=== PATIENT | female | born 1945 | race Caucasian/White ===

== ENCOUNTER 2016-12-12 09:19 | Outpatient (CLI) | payer MEDICARE ==
--- NOTE | 2016-12-12 11:53 | RAD ---
RIGHT SHOULDER THREE VIEWS HISTORY: Acute pain in the right shoulder. FINDINGS: There are degenerative changes in the acromioclavicular joint. No fracture, dislocation, or bony de struction is identified. POS: [facility]
== END 2016-12-12 09:20 | disposition home or self-care (01) ==
LOC: BURRAD 09:19
PROVIDERS: ATTEND Family Medicine
DX: M25.511 Pain in right shoulder (principal)

== ENCOUNTER 2016-12-29 09:43 | Outpatient (CLI) | payer MEDICARE ==
[2016-12-29 10:49] LABS: #Basophils 0.1 thou/uL (0.0-0.2); #Eosinphils 0.2 thou/uL (0.0-0.7); #Monocytes 0.7 thou/uL (0.11-0.59); %Basophils 0.9 % (0.0-1.0); %Eosinophils 2.3 % (0.0-10.0); %Lymphocytes 29.9 % (21.0-51.0); %Monocytes 7.3 % (0.0-10.0); %Neutrophils 59.6 % (42.0-75.0); Hemoglobin 15.7 g/dL (12.0-16.0); Mean Corpuscular HGB CONC 34.6 g/dL (32.0-36.0); Mean Corpuscular Hemoglobin 32.9 pg (27.0-31.0); Mean Corpuscular Volume 95.2 fl (81.0-99.0); Mean Platelet Volume 8.6 fL (7.4-10.4); Platelet Count 217 thou/uL (130-400); RBC Distribution Width 11.8 % (11.5-14.5); Red Blood Cell (RBC) Count 4.77 mill/uL (4.20-5.40); White Blood Cell (WBC) Count 10.1 thou/uL (4.8-10.8)
[2016-12-29 11:04] LABS: ALT (SGPT) 14 U/L (8-55); AST (SGOT) 16 U/L (5-34); Albumin 4.2 g/dL (3.4-4.8); Alkaline Phosphatase 63 U/L (40-150); Anion Gap 15 mmol/L (10-20); BUN (Urea Nitrogen) 10 mg/dL (9.8-20.1); Bilirubin, Total 0.8 mg/dL (0.2-1.2); Calc. Creatinine Clearance 0 mL/min (70-130); Calcium 9.2 mg/dL (7.8-10.44); Cardiac Risk 3.3 (Less than 4.5); Chloride 102 mmol/L (98-107); Cholesterol 181 mg/dl (< 200 Desired); Estimated GFR-MDRD 90; Globulin 2.3 g/dL (2.4-3.5); Glucose 99 mg/dL (80-115); HDL Cholesterol 55 mg/dL (>60 Neg Risk); LDL Cholesterol, Calculated 109 mg/dL; Potassium 4.1 mmol/L (3.5-5.1); Protein, Total 6.5 g/dL (6.0-8.3); Sodium 138 mmol/L (136-145); Triglycerides 85 mg/dL (Less than 150)
[2016-12-29 11:32] LABS: Carbon Dioxide 25 mmol/L (23-31)
== END 2016-12-29 09:44 | disposition home or self-care (01) ==
LOC: HPCALD 09:43
PROVIDERS: ATTEND Family Medicine
DX: E78.5 Hyperlipidemia, unspecified (principal); I10 Essential (primary) hypertension; E55.9 Vitamin D deficiency, unspecified
CPT/HCPCS: 36415; 80053; 80061; 82306; 85025

== ENCOUNTER 2019-12-26 13:26 | Outpatient (CLI) | payer MEDICARE, OTHER ==
--- NOTE | 2019-12-26 14:57 | RAD ---
LEFT SECOND TOE: Date: 12/26/2019 A healing fracture of the distal end of the proximal phalanx of the second toe is present. There is v cindy slight lateral angulation of the distal fragment. The first and third toes appeared intact. IMPRESSION: Fracture of the proximal phalanx of the second toe. POS: HOME
--- NOTE | 2019-12-26 14:58 | RAD ---
LEFT KNEE 4 VIEWS: Date: 12/26/2019 No fracture or joint effusion seen. The joint space seems normal and the articular surfaces are cyndy h. There is some very minor bony spurring seen on the back of the patella. IMPRESSION: No significant finding. POS: HOME
== END 2019-12-26 13:27 | disposition home or self-care (01) ==
LOC: BURRAD 13:26
PROVIDERS: ATTEND Family Medicine
DX: M25.562 Pain in left knee (principal); M79.675 Pain in left toe(s); M79.672 Pain in left foot; S92.512D Displaced fracture of proximal phalanx of left lesser toe(s), subsequent encounter for fracture with routine healing

== ENCOUNTER 2022-07-24 16:38 | Outpatient (CLI) | payer MEDICARE, OTHER | END 2022-07-24 16:39 | disposition home or self-care (01) | LOC: BURRAD 16:38 | PROVIDERS: ATTEND Podiatrist Foot & Ankle Surgery | DX: M84.375A Stress fracture, left foot, initial encounter for fracture (principal) ==